=== PATIENT | male | born 1960 | race Caucasian/White ===

== ENCOUNTER 2016-11-29 11:15 | Inpatient (IN) | payer SELFPAY ==
[~2016-11-29] VITALS: Ht 177.8 cm; Wt 123.8 kg
--- NOTE | ~2016-11-29 | DS ---
PATIENT'S NAME: AMAN BOWEN [facility] AGE: 56 Y [address] ROOM: [id number] [place], [place] [id number] LOCATION: GPCU ADMIT DATE: 11/29/2016 Discharge Summary DISCHARGE DATE: 12/03/2016 FAMILY PHYSICIAN: , JCARLOS ATTENDING PHYSICIAN: Ramón Payton PRIMARY DIAGNOSES: 1. Sepsis. 2. Community-acquired pneumonia, bibasilar with Haemophilus influenzae. 3. Acute on chronic hypoxic and hypercapnic respiratory failure. 4. Hoarseness, chronic. 5. Diabetes mellitus type 2. 6. Chronic systolic congestive heart failure (ejection fraction 30%). 7. Coronary artery disease. 8. Polysubstance abuse. 9. Morbid obesity. 10. Essential hypertension. 11. Tobaccoism. OPERATIONS OR PROCEDURES: A V/Q scan performed on 11/29/2016 was low probability for pulmonary embolism. HISTORY OF PRESENTING ILLNESS AND REASON FOR ADMISSION: Please refer to the H and P dictated on 11/29/2016. HOSPITAL COURSE: The patient was admitted to the hospital as noted above with presumptive diagnoses of sepsis and bilateral basilar community-acquired pneumonia. Sputum cultures eventually revealed Haemophilus influenzae. He was treated with broad-spectrum antibiotic therapy including vancomycin, Zosyn and levofloxacin. This was eventually tailored to levofloxacin. He did have a persistent leukocytosis over the course of his hospital stay, but this was felt to be secondary to steroid therapy. He defervesced. His clinical condition gradually improved. He did have significant oxygen requirements, but this also gradually improved. He received some respiratory therapy including bronchodilators and encouraged to attention to pulmonary hygiene. He also received some Mucinex. His blood sugars were managed with Accu-Cheks and sliding scale insulin. He was placed on some long-acting insulin, but it was noted that he was not compliant with his oral hypoglycemic regimen. He was placed back on this and his blood sugars gradually improved. By the fifth day of his hospital stay, it was felt that he could be safely transitioned back to an oral hypoglycemic regimen with plans for close clinical follow up with his primary care PATIENT'S NAME: AMAN BOWEN [facility] AGE: 56 Y [address] ROOM: [id number] [place], [place] [address] LOCATION: GPCU ADMIT DATE: 11/29/2016 Discharge Summary DISCHARGE DATE: 12/03/2016 FAMILY PHYSICIAN: PHYSICIAN, JCARLOS ATTENDING PHYSICIAN: Ramón Payton provider. He stated that he had not followed up with [facility] in sometime, but intended to follow up again there. The patient was noted to have significant hoarseness, but this was a chronic complaint. It was an acute worsening at the point of his hospitalization, but it gradually improved over the course of his hospital stay and he was back at his baseline. It was discussed that he should consider ENT evaluation, but it was decided not to pursue that while he was inpatient here, but rather could be pursued on an outpatient basis. By the end of the fifth hospital day, it was felt that he would be stable enough for discharge to home on 3 more days of Levaquin, bronchodilator therapy with Advair and strict adherence to no smoking and avoidance of other toxic ingestions including illicit drugs. He conveyed understanding and agreement. He refused to consider any sort of outpatient counseling or treatment citing that "it does not work for me." DISCHARGE INSTRUCTIONS: DIET: ADA 2000 calorie per day as tolerated. ACTIVITY: As tolerated. MEDICATIONS: 1. Levofloxacin 750 mg p.o. daily x3 more days. 2. Advair 250/50 one puff p.o. b.i.d. 3. Aspirin 81 mg p.o. daily. 4. Carvedilol 25 mg p.o. b.i.d. 5. Citalopram 20 mg p.o. at bedtime. 6. Gabapentin 300 mg p.o. at bedtime. 7. Guaifenesin 1200 mg p.o. b.i.d. 8. Lovastatin 40 mg p.o. at bedtime. 9. Metformin 1000 mg p.o. b.i.d. 10. Nicotine patch 21 mg apply and change daily. 11. Florastor 250 mg p.o. b.i.d. FOLLOWUP: He will follow up with his primary care provider at the [facility] in the next 5-7 days. CONDITION ON DISCHARGE: Fair. Total time spent on discharge process 45 minutes. PATIENT'S NAME: AMAN BOWEN [facility] AGE: 56 Y [address] ROOM: [place] [address] LOCATION: GPCU ADMIT DATE: 11/29/2016 Discharge Summary DISCHARGE DATE: 12/03/2016 FAMILY PHYSICIAN: JCARLOS ROGERS ATTENDING PHYSICIAN: Ramón Payton KERI MD CANDIDA JURADO/modl /[id number] d: 12/04/16726 t: 12/05/16 164, DISCHARGE SUMMARY
--- NOTE | ~2016-11-29 | ER ---
PATIENT'S NAME: AMAN BOWEN [facility] AGE: 56 Y [address] ROOM: [place] [address] LOCATION: GPCU ADMIT DATE: 11/29/2016 ER/Outpatient Report DISCHARGE DATE: FAMILY PHYSICIAN: PHYSICIAN, NO ATTENDING PHYSICIAN: PATRICK ERIC Time of Arrival: 1115 hours. Time of Evaluation: 1120 hours. CHIEF COMPLAINT: Shortness of breath and cough. HISTORY OF PRESENT ILLNESS: The patient is a 56-year-old male, who presents to the emergency department today with a chief complaint of shortness of breath and cough. He reports this started about 2 weeks prior to arrival. It has been worse over the past few days. The patient does have some nausea, no vomiting. No weakness. He does have some shortness of breath. He has evidence of diaphoresis. No ripping or tearing. No radiation to his back. The patient has had some fevers subjectively as well as chills. PAST MEDICAL HISTORY: Coronary artery disease with a history of stents; diabetes mellitus, non- insulin dependent; hypertension; dyslipidemia; obesity; depression. PAST SURGICAL HISTORY: Heart catheterization, stent placement, right wrist. SOCIAL HISTORY: The patient smokes one pack per day, before that has a history of smoking 2 packs per day for 40 years. Does have a history of snorting and IV use methamphetamine as well as smoking pot. He reports his last use of methamphetamine was 4 weeks ago. He reports he has not done IV meth for quite some time. Denies any alcohol abuse. ALLERGIES: NO KNOWN DRUG ALLERGIES. MEDICATIONS: Please see list. PRIMARY CARE DOCTOR: None. CARDIOLOGISTS: Dr. Lopez. PATIENT'S NAME: AMAN BOWEN [facility] AGE: 56 Y [address] ROOM: [place] [address] LOCATION: GPCU ADMIT DATE: 11/29/2016 ER/Outpatient Report DISCHARGE DATE: FAMILY PHYSICIAN: PHYSICIAN, NO ATTENDING PHYSICIAN: PATRICK ERIC REVIEW OF SYSTEMS: All systems are reviewed by myself and are negative with the exception of those discussed in the HPI and past medical history. PHYSICAL EXAMINATION: VITAL SIGNS: Weight 120.8 kg, blood pressure 141/93, pulse 130, respiratory rate 24, temperature 100.1, oxygen saturation 92% on 2 L nasal cannula. He is 86% on room air. GENERAL: The patient is a 56-year-old male, appears older than stated age, well developed, mildly obese. HEENT: Normocephalic, atraumatic. Pupils are equal, round, and reactive to light. NECK: Supple. There is no nuchal rigidity. CARDIOVASCULAR: Tachycardic. No murmurs, rubs, or gallops. LUNGS: Diminished diffusely with crackles at the bases bilaterally. ABDOMEN: Soft, nontender, and nondistended. No rebound, rigidity, or guarding. MUSCULOSKELETAL: The patient moves all 4 extremities. SKIN: Diaphoretic and pale. LABORATORY DATA AND X-RAYS: Labs and x-rays are obtained show sinus tachycardia with a rate of 112, normal axis, QTc of 487, no ST elevation, ST depression, no T-wave inversions. Chest x-ray shows bilateral lower lobe opacities. Venous blood gas: 7.44, 36, 64, 26, 0.6. Lactate is 4.4. CBC is normal except for white blood cell count of 22.0, platelets are 652, PTT is normal, INR is 1.2. D-dimer is elevated at 1.34. Procalcitonin is 0.10. CMP normal except for sodium 133, chloride 92, creatinine is 1.5, glucose 366. Mag is normal. CK is 1405. CK-MB is 10.9. Troponin is less than 0.04. BNP is 2306. ANC is 17.4. IMPRESSION: 1. Bilateral lower lobe pneumonia, community acquired. 2. Sepsis due to bilateral lower lobe pneumonia, community acquired. 3. Acute kidney injury. 4. Elevated BNP. 5. Initial visit. EMERGENCY DEPARTMENT COURSE: The patient was brought back to the examination room. Seen and evaluated by myself. IV is established. Laboratory analysis and imaging are obtained as described above. The patient does have evidence of bilateral lower lobe pneumonia. The patient is given a liter of normal saline bolus followed by Solu-Medrol 125 mg of IV as well as Zosyn 4.5 g IV and vancomycin 2 g IV. He has been given another liter of normal saline. I have discussed the case with Dr. Eric, Hospitalist Service. He does agree to accept the patient for PATIENT'S NAME: AMAN BOWEN [facility] AGE: 56 Y [address] ROOM: [place] [address] LOCATION: [facility] ADMIT DATE: 11/29/2016 ER/Outpatient Report DISCHARGE DATE: FAMILY PHYSICIAN: JCARLOS ROGERS ATTENDING PHYSICIAN: PATRICK ERIC further evaluation, treatment, and management. With the patient's elevated D- dimer, we have discussed with Dr. Eric obtaining a V/Q scan. The patient will proceed to V/Q scan, and then directly to his patient room, Dr. Eric will followup on the V/Q scan results. DISPOSITION: The patient is admitted under the care of hospitalist service of Dr. Eric, in stable condition. DO MINOR MAYEN/phul /[id number] d: 11/29/[id number] t: 12/01/16 1642, OUTPATIENT REPORT
--- NOTE | ~2016-11-29 | HP ---
PATIENT'S NAME: AMAN OBWEN [facility] AGE: 56 Y [address] ROOM: [place] [address] LOCATION: GPCU ADMIT DATE: 11/29/2016 History & Physical DISCHARGE DATE: FAMILY PHYSICIAN: PHYSICIAN, NO ATTENDING PHYSICIAN: PATRICK ERIC DATE OF SERVICE: CHIEF COMPLAINT: Shortness of breath and worsening productive yellowish cough for the last 2 weeks. HISTORY OF PRESENT ILLNESS: This is a 56-year-old male who says that for the last 2 weeks he has been having this worsening shortness of breath on exertion as well as productive yellowish cough. He has some chest pain as well, but the chest pain is only when he coughs. He has also felt some fever and chills, but he never took temperature at home. This has been happening for the last 2 weeks and that is why he came here for evaluation. He is a full code. He still smokes cigarette about 1-1/2 packs per day for many years. Last time he used IV amphetamine by injection was 1-1/2 years ago. He on and off smokes marijuana. He also drinks alcohol, but he denies any alcohol abuse. REVIEW OF SYSTEMS: As mentioned in the history of present illness. All other systems reviewed and negative except those mentioned in the history of present illness. PAST MEDICAL HISTORY: 1. Coronary artery disease, status post drug-eluting stent x2 in the past. 2. Diabetes type 2. 3. Hypertension. 4. Hyperlipidemia. 5. Morbid obesity. 6. Depression. 7. History of questionable endocarditis with aortic valve vegetation on echocardiogram, but blood culture 4 sets were all negative. 8. Ischemic cardiomyopathy, EF of 33% with negative stress test in the past. 9. The patient refused any AICD or pacemaker implantation per patient's choice. 10. History of ST-elevation PA in the past. ALLERGIES: NO KNOWN DRUG ALLERGIES. HOME MEDICATIONS: Currently being reconciled. PATIENT'S NAME: AMAN BOWEN [facility] AGE: 56 Y [address] ROOM: [place] [address] LOCATION: GPCU ADMIT DATE: 11/29/2016 History & Physical DISCHARGE DATE: FAMILY PHYSICIAN: PHYSICIAN, NO ATTENDING PHYSICIAN: PATRICK ERIC SOCIAL HISTORY: The patient is an active cigarette smoker about 1-1/2 packs per day and still smokes. He has been smoking for many years. The patient denies any alcohol abuse, but he drinks alcohol socially on and off. The patient occasionally smokes marijuana. He says that the last time he used IV amphetamine was a year and half ago. FAMILY HISTORY: Mother has diabetes and father is healthy according to the patient. PAST SURGICAL HISTORY: Status post drug-eluting stent x2 in the past. PHYSICAL EXAMINATION: VITAL SIGNS: At the time of my dictation, blood pressure 160/40, heart rate 74, respirations 24, saturation 96% on 5 L nasal cannula, and temperature 998. GENERAL APPEARANCE: Alert and oriented x3, in no acute distress. HEENT: Pupils equally round and reactive to light. Extraocular muscles intact. Nasal turbinates are normal bilaterally. Moist oral mucosa. No oral thrush. NECK: No JVD. ABDOMEN: Obese, soft, nontender, and nondistended. Normal bowel sounds. No hepatosplenomegaly. CARDIOVASCULAR: Regular rate and rhythm. Normal S1, S2. No murmur, no rubs, no gallops. RESPIRATORY: Clear breath sounds diffusely with bibasilar crackles. Some expiratory wheezing diffusely. EXTREMITIES: No edema in upper or lower extremities. NEUROLOGIC: Grossly nonfocal. SKIN: No ulcer, no rash, no cyanosis. LABORATORY DATA: A pH 7.44. ABG: Lactic acid 4.4, troponin less than 0.04, CPK 1351, proBNP 2206. White blood cells 22, hemoglobin 12.9, hematocrit 38.2, MCV 84.7, and platelets 652. Glucose 366, BUN 18, creatinine 1.5, sodium 133, potassium 3.9, chloride 92, and CO2 23. Calcium 9.3, total protein 8.0, albumin 2.3, AST 87, ALT 60, alkaline phosphatase 126, and total bilirubin 1.2. Magnesium 1.8, anion gap 21.9, GFR 48, globulin 5.7. INR 1.2, PTT 27. CK-MB 12.5. Influenza screen negative. Procalcitonin 0.1. D-dimer 1.34. IMAGES: 1. Ventilation perfusion scan showed low probability for PE. 2. Chest x-ray on admission suspicious for bibasilar pneumonia. ASSESSMENT: PATIENT'S NAME: AMAN BOWEN [facility] AGE: 56 Y [address] ROOM: [place] [address] LOCATION: GPCU ADMIT DATE: 11/29/2016 History & Physical DISCHARGE DATE: FAMILY PHYSICIAN: PHYSICIAN, NO ATTENDING PHYSICIAN: PATRICK ERIC 1. Acute hypoxemic respiratory failure secondary to bibasilar pneumonia. Cover with triple regimen with IV vancomycin, IV Zosyn, and IV Levaquin. Nebulization with Xopenex plus Atrovent q.6 hours while awake and Atrovent nebulization q.2 hours p.r.n. IV Solu-Medrol 60 mg t.i.d. Oxygen nasal cannula to keep the saturation more than 94%. Mucinex p.o. for cough. Incentive spirometry and flutter valve. Check a sputum culture and Gram stain. Urinary antigen for pneumococcal and Legionella. Influenza screen was already done, which was negative. Further plan depends on clinical course. The patient is DNR/DNI. 2. Diabetes type 2, on insulin sliding scale. Levemir at night. Home medications are currently being reconciled. 3. History of questionable endocarditis in the past. His last IV drug use was a year and half ago. Currently on my physical examination, I do not suspect endocarditis. However, given that he is septic from pneumonia, I am going to get 2 sets of blood culture and if positive, I will get a transesophageal echo. He is already covered with antibiotics. 4. Hypertension. Currently medications are being reconciled. 5. Coronary artery disease, status post percutaneous coronary intervention with 2 drug-eluting stents x2 in the past. No chest pain on exertion or at rest. Chest pain only with cough, likely from pneumonia. We will cycle cardiac enzymes. EKG right now to make sure there are no acute ischemic changes. Further plan depends on clinical course. 6. DVT prophylaxis: He is on Lovenox subcu renally dosed. Time spent on the day of admission 40 minutes including chart review, examining the patient, interviewing the patient, addressing all the questions and concerns of the patient, and going over the plan of care with the patient. PATRICK ERIC MD CC/modl /[id number] D: [id number] T: [id number] HISTORY & PHYSICAL
[~2016-11-29 11:15] MED LIST: ASPIRIN LO-DOSE81 MG PO; CELEXA20 MG PO; COREG25 MG PO; GLUCOPHAGE1000 MG PO; GLUCOTROL5 MG PO; LOVASTATIN40 MG PO; LYRICA 50MG CAP50 MG PO; NEURONTIN300 MG PO; NICODERM (HABIT14 MG TRANS; PRINIVIL10 MG PO
[2016-11-29 11:47] LABS: BICARBONATE 24.5 mmol/L (18.0-23.0); LACTATE 4.4 mEq/L (0.50-1.60); PCO2 36 mmHg (35-45); PO2 64 mmHg (80-90)
[2016-11-29 11:49] LABS: BASOPHIL % 0.2 %; HEMATOCRIT 38.2 % (37.0-53.0); HEMOGLOBIN 12.9 g/dL (12.0-17.0); IMMATURE GRANULOCYTE # 0.2 K/uL (0.0-0.3); IMMATURE GRANULOCYTE % 1.1 %; LYMPHOCYTE # 2.3 K/uL (0.8-4.0); LYMPHOCYTE % 10.4 %; MCH 28.6 pg (27.0-34.0); MCHC 33.8 gm/dL (32.0-36.5); MCV 84.7 fl (83.0-98.0); MONOCYTE # 2.1 K/uL (0.0-1.0); MONOCYTE % 9.4 %; MPV 9.2 fl (9.4-12.4); NEUTROPHIL # (ANC) 17.4 K/uL (1.4-9.0); NEUTROPHIL % 78.9 %; NRBC % 0.1 /100WBC (0-0.00); PLATELET COUNT 652 K/uL (150-450); RBC 4.51 M/uL (4.00-6.00); RDW-CV 13.3 % (11.9-14.6)
[2016-11-29 11:57] LABS: INR - (THERAPEUTIC) 1.2 (0.9-1.1); PROTIME 12.6 SECONDS (9.6-11.1); PTT 27 SECONDS (25-32)
[2016-11-29 12:12] LABS: ALBUMIN 2.3 gm/dL (3.5-5.0); ALK PHOS 126 IU/L (33-138); ALT 60 IU/L (12-78); ANION GAP 21.9 (10.0-19.0); AST 87 IU/L (10-40); BLOOD UREA NITROGEN 18 mg/dL (6-24); CALCIUM 9.3 mg/dL (8.5-10.5); CHLORIDE 92 mMol/L (96-110); CO2 23 mMol/L (22-32); CREATININE 1.5 mg/dL (0.6-1.3); ESTIMATED GFR (MDRD EQUATION) 48; MAGNESIUM 1.8 mg/dL (1.3-2.6); POTASSIUM 3.9 mMol/L (3.7-5.1); SODIUM 133 mMol/L (135-145); TOTAL BILIRUBIN 1.2 mg/dL (0.0-1.5)
[2016-11-29 12:20] LABS: CPK 1405 IU/L (35-332)
[2016-11-29 16:28] LABS: CPK 1351 IU/L (35-332)
[2016-11-29 18:03] LABS: BILIRUBIN URINE NEGATIVE (NEGATIVE); BLOOD URINE 250 /UL (NEGATIVE); COLOR URINE YELLOW (YELLOW); GLUCOSE URINE 1000 mg/dL (NEGATIVE); KETONE URINE 50 mg/dL (NEGATIVE); LEUKOCYTES URINE NEGATIVE /UL (NEGATIVE); NITRITE URINE NEGATIVE (NEGATIVE); PROTEIN URINE 30 mg/dL (NEGATIVE); SPEC GRAVITY URINE 1.015 (1.003-1.035); TURBIDITY URINE CLEAR (CLEAR); UROBILINOGEN URINE 1 mg/dL (NORMAL)
[2016-11-29 18:27] LABS: AMORPHOUS URINE 1+ (NEGATIVE); BACTERIA URINE FEW (NEGATIVE); MUCUS URINE 1+ (NEGATIVE); RBC URINE 0-2 #/HPF (NEGATIVE); WBC URINE 0-2 #/HPF (NEGATIVE)
[2016-11-29 23:15] LABS: CPK 1118 IU/L (35-332)
[2016-11-30 04:05] LABS: HEMOGLOBIN 10.9 g/dL (12.0-17.0); MCH 28.3 pg (27.0-34.0); MCV 85.7 fl (83.0-98.0); MPV 9.2 fl (9.4-12.4); RBC 3.85 M/uL (4.00-6.00); RDW-CV 13.6 % (11.9-14.6); WBC 13.8 K/uL (4.0-11.0)
[2016-11-30 04:29] LABS: BLOOD UREA NITROGEN 24 mg/dL (6-24); CALCIUM 8.3 mg/dL (8.5-10.5); CHLORIDE 96 mMol/L (96-110); CO2 26 mMol/L (22-32); CREATININE 1.2 mg/dL (0.6-1.3); SODIUM 135 mMol/L (135-145)
[2016-11-30 04:31] LABS: ANION GAP 16.6 (10.0-19.0); ESTIMATED GFR (MDRD EQUATION) > 60
[2016-11-30 04:32] LABS: POTASSIUM 3.6 mMol/L (3.7-5.1)
[2016-11-30 04:35] LABS: CPK 836 IU/L (35-332)
[2016-12-01 06:02] LABS: BASOPHIL % 0.2 %; HEMATOCRIT 31.9 % (37.0-53.0); HEMOGLOBIN 10.6 g/dL (12.0-17.0); IMMATURE GRANULOCYTE # 0.1 K/uL (0.0-0.3); LYMPHOCYTE # 1.3 K/uL (0.8-4.0); LYMPHOCYTE % 9.6 %; MCH 28.2 pg (27.0-34.0); MCHC 33.2 gm/dL (32.0-36.5); MCV 84.8 fl (83.0-98.0); MONOCYTE # 0.5 K/uL (0.0-1.0); MONOCYTE % 3.4 %; MPV 9.1 fl (9.4-12.4); NEUTROPHIL # (ANC) 11.4 K/uL (1.4-9.0); NEUTROPHIL % 85.8 %; NRBC % 0 /100WBC (0-0.00); PLATELET COUNT 492 K/uL (150-450); RBC 3.76 M/uL (4.00-6.00); RDW-CV 13.5 % (11.9-14.6); WBC 13.3 K/uL (4.0-11.0)
[2016-12-01 06:24] LABS: ANION GAP 13.9 (10.0-19.0); BLOOD UREA NITROGEN 27 mg/dL (6-24); CHLORIDE 98 mMol/L (96-110); CO2 26 mMol/L (22-32); CREATININE 1.2 mg/dL (0.6-1.3); ESTIMATED GFR (MDRD EQUATION) > 60; PHOSPHORUS 3.1 mg/dL (2.5-4.9); POTASSIUM 3.9 mMol/L (3.7-5.1); SODIUM 134 mMol/L (135-145)
[2016-12-01 06:26] LABS: ALBUMIN 1.7 gm/dL (3.5-5.0)
[2016-12-02 05:51] LABS: BASOPHIL % 0.1 %; HEMATOCRIT 34.4 % (37.0-53.0); HEMOGLOBIN 11.2 g/dL (12.0-17.0); IMMATURE GRANULOCYTE # 0.1 K/uL (0.0-0.3); IMMATURE GRANULOCYTE % 0.9 %; LYMPHOCYTE # 1.6 K/uL (0.8-4.0); LYMPHOCYTE % 11.1 %; MCH 28.1 pg (27.0-34.0); MCHC 32.6 gm/dL (32.0-36.5); MCV 86.2 fl (83.0-98.0); MONOCYTE # 0.8 K/uL (0.0-1.0); MONOCYTE % 5.4 %; MPV 9.3 fl (9.4-12.4); NEUTROPHIL % 82.5 %; NRBC % 0 /100WBC (0-0.00); PLATELET COUNT 457 K/uL (150-450); RBC 3.99 M/uL (4.00-6.00); RDW-CV 13.4 % (11.9-14.6); WBC 14.6 K/uL (4.0-11.0)
[2016-12-02 06:12] LABS: ANION GAP 12.8 (10.0-19.0); BLOOD UREA NITROGEN 27 mg/dL (6-24); CALCIUM 8.2 mg/dL (8.5-10.5); CHLORIDE 98 mMol/L (96-110); CO2 29 mMol/L (22-32); CREATININE 1.2 mg/dL (0.6-1.3); ESTIMATED GFR (MDRD EQUATION) > 60; PHOSPHORUS 2.8 mg/dL (2.5-4.9); POTASSIUM 3.8 mMol/L (3.7-5.1); SODIUM 136 mMol/L (135-145)
[2016-12-02 06:14] LABS: ALBUMIN 1.8 gm/dL (3.5-5.0)
[2016-12-03 05:33] LABS: BASOPHIL % 0.1 %; EOSINOPHIL # 0.1 K/uL (0.0-0.5); EOSINOPHIL % 0.4 %; HEMATOCRIT 39.1 % (37.0-53.0); IMMATURE GRANULOCYTE # 0.2 K/uL (0.0-0.3); IMMATURE GRANULOCYTE % 1.2 %; LYMPHOCYTE # 3.3 K/uL (0.8-4.0); MCH 28.3 pg (27.0-34.0); MCHC 33.2 gm/dL (32.0-36.5); MCV 85.2 fl (83.0-98.0); MONOCYTE # 0.9 K/uL (0.0-1.0); MONOCYTE % 5.5 %; MPV 9.1 fl (9.4-12.4); NEUTROPHIL # (ANC) 11.2 K/uL (1.4-9.0); NEUTROPHIL % 71.8 %; NRBC % 0 /100WBC (0-0.00); PLATELET COUNT 494 K/uL (150-450); RBC 4.59 M/uL (4.00-6.00); RDW-CV 13.4 % (11.9-14.6); WBC 15.6 K/uL (4.0-11.0)
[2016-12-03 05:43] LABS: ALBUMIN 2.1 gm/dL (3.5-5.0); ANION GAP 14.5 (10.0-19.0); BLOOD UREA NITROGEN 24 mg/dL (6-24); CALCIUM 8.8 mg/dL (8.5-10.5); CHLORIDE 96 mMol/L (96-110); CO2 30 mMol/L (22-32); CREATININE 1.2 mg/dL (0.6-1.3); ESTIMATED GFR (MDRD EQUATION) > 60; PHOSPHORUS 3.2 mg/dL (2.5-4.9); POTASSIUM 3.5 mMol/L (3.7-5.1); SODIUM 137 mMol/L (135-145)
[2016-12-03] MEDS ORDERED: HUMIBID LA (MU600 MG PO (11:14)
[2016-12-03] MEDS ORDERED: NICOTINE PATCH1 EAC1 TRANS (11:19)
[2016-12-03] MEDS ORDERED: FLORASTOR250 MG PO (11:20)
[2016-12-03] MEDS ORDERED: LEVAQUIN750 MG PO (11:23)
[2016-12-03] MEDS ORDERED: ADVAIR 250-501 EACH INH (11:23)
== END 2016-12-03 13:10 | disposition disaster alternative care site (69) | DRG 193 ==
LOC: GMED 11:15 → GPCU 12:21
PROVIDERS: Emergency Medicine; Family Medicine; ADMIT Internal Medicine
DX: J14 Pneumonia due to Hemophilus influenzae (principal); J96.21 Acute and chronic respiratory failure with hypoxia; N17.9 Acute kidney failure, unspecified; J96.22 Acute and chronic respiratory failure with hypercapnia; I50.22 Chronic systolic (congestive) heart failure; J44.1 Chronic obstructive pulmonary disease with (acute) exacerbation; E11.9 Type 2 diabetes mellitus without complications; I25.10 Atherosclerotic heart disease of native coronary artery without angina pectoris; Z79.84 Long term (current) use of oral hypoglycemic drugs; E66.01 Morbid (severe) obesity due to excess calories; I25.5 Ischemic cardiomyopathy; I25.2 Old myocardial infarction; Z66 Do not resuscitate; Z23 Encounter for immunization; Z87.891 Personal history of nicotine dependence; Z68.39 Body mass index [BMI] 39.0-39.9, adult; E78.5 Hyperlipidemia, unspecified; I10 Essential (primary) hypertension; F32.9 Major depressive disorder, single episode, unspecified
CPT/HCPCS: A9539; A9540; G0008; J1650; J1940; J1956; J2543; J2920; J2930; J3370; J7030; J7040; J7050; J7120; J7612